=== PATIENT | female | born 1975 | race Caucasian/White ===

== ENCOUNTER 2023-02-12 08:00 | Outpatient (CLI) | payer BC, SELFPAY ==
--- NOTE | ~2023-02-12 | CT_ITS ---
EXAMINATION: CT sinus wo con DATE: 02/12/2023 08:29 INDICATION: Acute recurrent maxillary sinusitis. Headache and dizziness. TECHNIQUE: Computed tomography (CT) of the paranasal sinuses was performed without intravenous contra st. Iterative reconstruction technique was employed. The dose-length product was 344.27 mGy-cm. COMPARISON: None FINDINGS: There is extensive mucosal thickening in the frontal sinuses. There is extensive mucosal th ickening in the ethmoid sinuses with an anterior predominance. There is moderate mucosal thickening i n the maxillary sinuses. There is mild mucosal thickening in the sphenoid sinuses. There is leftward deviation of the nasal septum with a left lateral spur. Right ostiomeatal unit is occluded at the hia tus semilunaris. Left ostiomeatal unit is occluded at the hiatus semilunaris and infundibulum. IMPRESSION: 1. Mucosal thickening in the paranasal sinuses with occlusion of the ostiomeatal units. 2. Leftward deviation of the nasal septum. Reviewed, dictated and finalized at location A. IMPRESSION: 1. Mucosal thickening in the paranasal sinuses with occlusion of the ostiomeata l units. 2. Leftward deviation of the nasal septum.
== END 2023-02-12 08:01 | disposition home or self-care (01) ==
PROVIDERS: PCP Family Medicine; Visit Provider Otolaryngology
DX: J32.2 Chronic ethmoidal sinusitis (principal); J01.01 Acute recurrent maxillary sinusitis; J34.2 Deviated nasal septum
CPT/HCPCS: 70486